=== PATIENT | male | born 1960 | race Caucasian/White ===

== ENCOUNTER → 2017-10-24 | Outpatient (CLI) | payer OTHER | END | disposition home or self-care (01) | LOC: CFH 12:36 | PROVIDERS: ATTEND Family Medicine | DX: M51.36 Other intervertebral disc degeneration, lumbar region (principal) | CPT/HCPCS: 72148 ==

== ENCOUNTER → 2017-12-13 | Outpatient (CLI) | payer OTHER ==
[~2017-12-13] MED LIST: OMNIPAQUE 350 MG/ML, 100ML BOTTLE ONE
== END | disposition home or self-care (01) ==
LOC: CFH 12:40
PROVIDERS: ATTEND Internal Medicine Gastroenterology
DX: K59.00 Constipation, unspecified (principal); K92.1 Melena
CPT/HCPCS: 74177; Q9967

== ENCOUNTER 2019-02-26 12:00 | Emergency (ER) | payer OTHER ==
[~2019-02-26] VITALS: Ht 175.3 cm; Wt 91.0 kg
[2019-02-26] MEDS ORDERED: SODIUM CHLORIDE FLUSH 10ML SYR IVF ONE (14:00)
[2019-02-26 14:07] LABS: ALBUMIN 4.2 g/dL (3.4-5.0); ANION GAP 6 mmol/L (5-15); CALCIUM 9.3 mg/dL (8.5-10.1); CHLORIDE 107 mmol/L (98-107); CREATININE 1.21 mg/dL (0.7-1.3); INTERNATIONAL NORMALIZED RATIO 1.01 (0.93-1.1); PROTHROMBIN TIME 10.6 Seconds (9.6-11.5)
[2019-02-26 14:08] LABS: BASOPHILS # (AUTO) 0.07 x10^3/uL (0-0.1); BASOPHILS % (AUTO) 1 % (0-1); EOSINOPHILS # (AUTO) 0.05 x10^3/uL (0-0.4); EOSINOPHILS % (AUTO) 1 % (1-7); LYMPHOCYTES # (AUTO) 2.05 x10^3/uL (1-3.4); LYMPHOCYTES % (AUTO) 22 % (22-44); MD NO; MEAN CORPUSCULAR HEMOGLOBIN 32.6 pg (27.5-34.5); MEAN CORPUSCULAR HGB CONC 33.7 g/dL (33.2-36.2); MEAN CORPUSCULAR VOLUME 96.6 fL (81-97); MEAN PLATELET VOLUME 8.4 fL (7.4-10.4); MONOCYTES # (AUTO) 0.74 x10^3/uL (0.2-0.8); MONOCYTES % (AUTO) 8 % (2-9); NEUTROPHILS # (AUTO) 6.59 x10^3/uL (1.8-6.8); NEUTROPHILS % (AUTO) 69 % (42-75); PLATELET COUNT 300 x10^3/uL (130-400); RED BLOOD COUNT 4.55 x10^6/uL (4.38-5.82)
[2019-02-26 14:11] LABS: TROPONIN I < 0.015 ng/mL (0.000-0.045)
[2019-02-26 15:38] VITALS: BP 125/90
== END 2019-02-26 16:08 | disposition home or self-care (01) ==
LOC: ED 13:15
DX: I48.92 Unspecified atrial flutter (principal); I10 Essential (primary) hypertension; K21.9 Gastro-esophageal reflux disease without esophagitis; F41.9 Anxiety disorder, unspecified
CPT/HCPCS: 36415; 71045; 80048; 82040; 83735; 83880; 84484; 85025; 85610; 85730; 93005; 99284

== ENCOUNTER 2019-03-01 06:13 | Day surgery (SDC) | payer OTHER ==
[~2019-03-01] VITALS: Ht 175.3 cm; Wt 86.0 kg
[2019-03-01] MEDS ORDERED: SODIUM CHLORIDE 0.9% 500 ML IV PRN (06:46)
[2019-03-01 06:48] VITALS: BP 126/94
[2019-03-01] MEDS ORDERED: SODIUM CHLORIDE 0.9% 1,000 ML IV ONE (07:00)
[2019-03-01] MEDS ORDERED: APIX5TAB PO (07:06)
[2019-03-01] MEDS ORDERED: ZOLP10TA PO (07:06)
[2019-03-01] MEDS ORDERED: PANT40TA5 PO (07:06)
[2019-03-01] MEDS ORDERED: CITA20TA6 PO (07:06)
[2019-03-01] MEDS ORDERED: MAGN300C PO (07:06)
[2019-03-01] MEDS ORDERED: LEVO150T5 PO (07:06)
[2019-03-01] MEDS ORDERED: LOSA100T14 PO (07:06)
[2019-03-01] MEDS ORDERED: ALPR0.5T7 PO (07:10)
[2019-03-01] MEDS ORDERED: SIMV40TA3 PO (07:10)
[2019-03-01] MEDS ORDERED: CHOL200074 PO (07:10)
[2019-03-01] MEDS ORDERED: PROPOFOL 10 MG/ML, 20ML ONE (07:54)
== END 2019-03-01 08:45 | disposition home or self-care (01) ==
LOC: CACL 06:13
PROVIDERS: ATTEND Internal Medicine Cardiovascular Disease
DX: I48.92 Unspecified atrial flutter (principal); I34.0 Nonrheumatic mitral (valve) insufficiency; I10 Essential (primary) hypertension; E78.2 Mixed hyperlipidemia; E03.9 Hypothyroidism, unspecified; F41.9 Anxiety disorder, unspecified; K21.9 Gastro-esophageal reflux disease without esophagitis; Z72.89 Other problems related to lifestyle; Z79.01 Long term (current) use of anticoagulants; Z79.82 Long term (current) use of aspirin; Z79.890 Hormone replacement therapy; Z79.899 Other long term (current) drug therapy; Z85.828 Personal history of other malignant neoplasm of skin
CPT/HCPCS: 92960; 93312; 93321; 93325; J2704

== ENCOUNTER → 2019-03-26 | Outpatient (CLI) | payer OTHER ==
[~2019-03-26] MED LIST changes: +ALPR0.5T7 PO; +APIX5TAB PO; +CHOL200074 PO; +CITA20TA6 PO; +LEVO150T5 PO; +LOSA100T14 PO; +MAGN300C PO; -OMNIPAQUE 350 MG/ML, 100ML BOTTLE ONE; +PANT40TA5 PO; +SIMV40TA3 PO; +ZOLP10TA PO
== END | disposition home or self-care (01) ==
LOC: RAD 08:23
CPT/HCPCS: 74220

== ENCOUNTER → 2019-12-06 | Outpatient (CLI) | payer OTHER ==
[~2019-12-06] MED LIST changes: +SIMV40TA20 PO; -SIMV40TA3 PO
== END | disposition home or self-care (01) ==
LOC: STAR 08:05
PROVIDERS: ATTEND Anesthesiology
DX: Z01.812 Encounter for preprocedural laboratory examination (principal); Z20.828 Contact with and (suspected) exposure to other viral communicable diseases
CPT/HCPCS: 36415; 87635

== ENCOUNTER 2019-12-10 08:39 | Observation (INO) | payer OTHER ==
[~2019-12-10] VITALS: Ht 175.3 cm; Wt 91.6 kg
[~2019-12-10 08:39] MED LIST changes: -PANT40TA5 PO; +PANT40TA6 PO
[2019-12-10 15:33] VITALS: BP 140/78
[2019-12-10 15:52] LABS: BASOPHILS # (AUTO) 0.04 x10^3/uL (0-0.1); BASOPHILS % (AUTO) 1 % (0-1); EOSINOPHILS # (AUTO) 0.14 x10^3/uL (0-0.4); EOSINOPHILS % (AUTO) 2 % (1-7); LYMPHOCYTES # (AUTO) 2.37 x10^3/uL (1-3.4); LYMPHOCYTES % (AUTO) 31 % (22-44); MD NO; MEAN CORPUSCULAR HGB CONC 33.3 g/dL (33.2-36.2); MEAN CORPUSCULAR VOLUME 96.2 fL (81-97); MEAN PLATELET VOLUME 8.2 fL (7.4-10.4); MONOCYTES # (AUTO) 0.71 x10^3/uL (0.2-0.8); MONOCYTES % (AUTO) 9 % (2-9); NEUTROPHILS # (AUTO) 4.48 x10^3/uL (1.8-6.8); NEUTROPHILS % (AUTO) 58 % (42-75); PLATELET COUNT 313 x10^3/uL (130-400); RED CELL DISTRIBUTION WIDTH 14.4 % (9.4-14.8)
[2019-12-10] MEDS ORDERED: LIDOCAINE 1%, 20ML ONE (15:53)
[2019-12-10 15:58] LABS: INTERNATIONAL NORMALIZED RATIO 1.03 (0.93-1.1); PROTHROMBIN TIME 10.6 Seconds (9.6-11.5)
[2019-12-10 15:59] LABS: ANION GAP 8 mmol/L (5-15); CALCIUM 9.4 mg/dL (8.5-10.1); CHLORIDE 103 mmol/L (98-107); CREATININE 1.19 mg/dL (0.7-1.3)
[2019-12-10] MEDS ORDERED: SODIUM CHLORIDE 0.9% 1,000 ML IV ONE (16:00)
[2019-12-10] MEDS ORDERED: SODIUM CHLORIDE 0.9% 1,000 ML IV SCH (16:00)
[2019-12-10] MEDS ORDERED: MIDAZOLAM 1 MG/ML, 2ML ONE (16:06)
[2019-12-10] MEDS ORDERED: FENTANYL PF 250 MCG/5ML ONE (16:07)
[2019-12-10] MEDS ORDERED: PROPOFOL 10 MG/ML, 20ML ONE (16:09)
[2019-12-10] MEDS ORDERED: EPHEDRINE 50 MG/ML, 1ML ONE (16:09)
[2019-12-10] MEDS ORDERED: ROCURONIUM 10 MG/ML,10ML ONE (16:09)
[2019-12-10] MEDS ORDERED: DEXAMETHASONE 4 MG/ML, 1ML ONE (16:44)
[2019-12-10] MEDS ORDERED: SUGAMMADEX 200 MG/2 ML IVPush ONE (17:46)
[2019-12-10] MEDS ORDERED: ONDANSETRON 2MG/ML, 2ML ONE (17:46)
[2019-12-10] MEDS ORDERED: HYDROmorphone 1 MG/ML, 1ML INJ IVPush PRN (18:30)
[2019-12-10] MEDS ORDERED: OXYcodone 5 MG/5 ML ORAL.SOL UDC PO PRN (18:30)
[2019-12-10] MEDS ORDERED: ZOLPIDEM 10MG TABLET PO PRN (18:30)
[2019-12-10] MEDS ORDERED: PROMETHAZINE 25 MG/ML, 1ML IVPush PRN (18:30)
[2019-12-10] MEDS ORDERED: FENTANYL PF 100 MCG/2ML IV PRN (18:30)
[2019-12-10] MEDS ORDERED: ACETAMINOPHEN 325 MG TABLET PO PRN (18:30)
[2019-12-10] MEDS ORDERED: ALBUTEROL SULFATE 2.5 MG/3 ML NPPB PRN (18:30)
[2019-12-10] MEDS ORDERED: PROMETHAZINE 12.5 MG SUPP PR PRN (18:30)
[2019-12-10] MEDS ORDERED: MIDAZOLAM 1 MG/ML, 2ML IV PRN (18:30)
[2019-12-10] MEDS ORDERED: LABETALOL 5MG/ML, 20ML IV PRN (18:30)
[2019-12-10] MEDS ORDERED: EPHEDRINE 50 MG/ML, 1ML IVPush PRN (18:30)
[2019-12-10] MEDS ORDERED: DIPHENHYDRAMINE 50 MG/ML, 1ML IVPush PRN (18:30)
[2019-12-10] MEDS ORDERED: ONDANSETRON 2MG/ML, 2ML IVPush PRN (18:30)
[2019-12-10] MEDS ORDERED: hydrALAzine 20 MG/ML, 1ML IV PRN (18:30)
[2019-12-10] MEDS ORDERED: MEPERIDINE/PF 25MG/0.5ML IVPush PRN (18:30)
[2019-12-10] MEDS ORDERED: FENTANYL PF 100 MCG/2ML ONE (18:39)
[2019-12-10] MEDS ORDERED: DIAZEPAM 5 MG/ML, 2ML ONE (18:47)
[2019-12-10] MEDS ORDERED: OXYcodone 5 MG/5 ML ORAL.SOL UDC ONE (18:48)
[2019-12-10] MEDS: DIAZEPAM 5 MG/ML, 2ML IVPush PRN ×2 (18:51→19:31)
[2019-12-10 19:40] VITALS: BP 160/83
[2019-12-10] MEDS ORDERED: SIMVASTATIN 40 MG TABLET PO SCH (21:00)
[2019-12-10] MEDS: APIXABAN 5 MG TABLET PO SCH (22:10)
[2019-12-10] MEDS ORDERED: ACETAMINOPHEN 500 MG TABLET PO PRN (23:30)
[2019-12-11 00:33] VITALS: BP 103/63
[2019-12-11 07:00] VITALS: BP 123/70
[2019-12-11] MEDS: APIXABAN 5 MG TABLET PO SCH (08:36)
[2019-12-11] MEDS ORDERED: LOSARTAN 100 MG TAB PO SCH (09:00)
[2019-12-11] MEDS ORDERED: LEVOTHYROXINE 150 MCG TABLET PO SCH (09:00)
[2019-12-11] MEDS ORDERED: CITALOPRAM 20 MG TABLET PO SCH (09:00)
== END 2019-12-11 11:28 | disposition home or self-care (01) ==
LOC: CACL 08:39 → 5SO 18:04
PROVIDERS: ADMIT Internal Medicine Clinical Cardiac Electrophysiology; ATTEND Internal Medicine Clinical Cardiac Electrophysiology
DX: I48.92 Unspecified atrial flutter (principal); I10 Essential (primary) hypertension; E03.9 Hypothyroidism, unspecified; E78.2 Mixed hyperlipidemia; Z79.01 Long term (current) use of anticoagulants; Z79.899 Other long term (current) drug therapy; Z85.828 Personal history of other malignant neoplasm of skin
CPT/HCPCS: 36415; 71046; 80048; 85025; 85610; 85730; 93005; 93312; 93321; 93325; G0378; J1100; J2250; J2405; J2704; J3010; J3360; J3490; J7030